=== PATIENT | male | born 1965 ===

== ENCOUNTER 2019-06-20 16:09 | Observation (INO) | payer OTHER ==
--- NOTE | 2019-06-20 16:57 | RAD ---
Chest AP view INDICATION: History of confusion COMPARISON: None FINDINGS: Lungs: The lungs are clear Cardiac silhouette: The cardiomediastinal silhouette appears within normal limits. Pulmonary vasculature: Normal Pleural spaces: No pleural effusion or pneumothorax is demonstrated. Upper abdomen: No abnormality seen. Osseous structures: No acute osseous abnormality. There is an ACDF of the lower cervical spine. Additional findings: None. IMPRESSION: No acute cardiopulmonary abnormality.
[2019-06-20 17:13] LABS: #Basophils 0.1 thou/uL (0.0-0.2); #Lymphocytes 0.7 thou/uL (1.20-3.40); #Monocytes 0.7 thou/uL (0.11-0.59); #Neutrophils 7.1 thou/uL (1.40-6.50); %Basophils 0.6 % (0.0-1.0); %Eosinophils 0.2 % (0.0-10.0); %Lymphocytes 7.8 % (21.0-51.0); %Monocytes 7.7 % (0.0-10.0); %Neutrophils 83.6 % (42.0-75.0); Hemoglobin 16.3 g/dL (14.0-18.0); Mean Corpuscular HGB CONC 34.4 g/dL (32.0-36.0); Mean Corpuscular Hemoglobin 33.5 pg (27.0-31.0); Mean Corpuscular Volume 97.4 fL (78.0-98.0); Mean Platelet Volume 7.6 fL (7.4-10.4); Platelet Count 135 thou/uL (130-400); RBC Distribution Width 12.5 % (11.5-14.5); Red Blood Cell (RBC) Count 4.88 mill/uL (4.70-6.10); White Blood Cell (WBC) Count 8.5 thou/uL (4.8-10.8)
--- NOTE | 2019-06-20 17:14 | CT ---
CT ABODMEN AND PELVIS PERFORMED WITHOUT CONTRAST ENHANCEMENT: 06/20/19 HISTORY: Altered mental status. The ventricular and cisternal system is within normal limits. There is no signs of intracerebral hemo rrhage or extra-axial fluid collections. Mastoid air cells and visualized sinuses are clear. IMPRESSION: No acute intracranial abnormalities. POS: JEAN CLAUDE
[2019-06-20] MEDS ORDERED: Ondansetron PF 4 MG/2 ML Vial ONE (17:15)
[2019-06-20] MEDS ORDERED: Lorazepam 2 MG/ML VIAL ONE (17:15)
[2019-06-20] MEDS ORDERED: Multivitamins, Adult 10 ML, Thiamine HCl 100 MG, Folic Acid 1 MG in Dextrose 5 %-0.45 %... IV SCH (17:30)
[2019-06-20 17:35] LABS: ALT (SGPT) 122 U/L (8-55); AST (SGOT) 113 U/L (5-34); Alkaline Phosphatase 68 U/L (40-110); Anion Gap 19 mmol/L (10-20); BUN (Urea Nitrogen) 12 mg/dL (8.4-25.7); Bilirubin, Total 2.4 mg/dL (0.2-1.2); Calc. Creatinine Clearance 0 mL/min (70-130); Calcium 10.1 mg/dL (7.8-10.44); Carbon Dioxide 22 mmol/L (22-29); Chloride 99 mmol/L (98-107); Estimated GFR-MDRD 79; Globulin 3.2 g/dL (2.4-3.5); Glucose 190 mg/dL (70-105); Protein, Total 8.2 g/dL (6.0-8.3); Sodium 136 mmol/L (136-145)
[2019-06-20 18:05] LABS: Acetaminophen Less than 6.0 mcg/mL (10.0-30.0); Alcohol Less than 10 mg/dL (Less than 10); Salicylate Less than 8.0 mg/dL (15.0-30.0)
[2019-06-20 18:17] LABS: PTT 24.2 SEC (22.9-36.1); Prothrombin Time 13.6 SEC (12.0-14.7)
[2019-06-20] MEDS ORDERED: Aspirin Chewable 81 MG TAB ONE (18:49)
[2019-06-20 18:57] LABS: Bacteria/HPF None Seen HPF (None Seen); Bilirubin Negative (Negative); Blood, Urine Trace (Negative); Clarity Clear (Clear); Glucose, Urine (Dipstick) 50 mg/dL (Negative); Leukocyte Negative Leu/uL (Negative); Mucous/LPF Rare LPF (<2+); Nitrite Negative (Negative); Protein, Urine (Dipstick) 300 mg/dL (Neg-Trace); RBC/HPF None Seen HPF (0-3); Squamous Epithelial None Seen HPF (0-3); Urobilinogen Normal mg/dL (Less than 2); WBC/HPF 0-3 HPF (0-3)
[2019-06-20 19:06] LABS: Amphetamine Not Detected (NotDetected); Barbiturates Screen Not Detected (NotDetected); Benzodiazepine Screen Not Detected (NotDetected); Cocaine Metabolite Screen Not Detected (NotDetected); Medtox Control Line Valid? VALID (VALID); Medtox Reader # READER 1; Methadone Not Detected (NotDetected); Methamphetamine Not Detected (NotDetected); Opiate Screen Not Detected (NotDetected); Oxycodone Screen Not Detected (NotDetected); Phencyclidine (PCP) Not Detected (NotDetected); THC/Cannabinoid Screen Not Detected (NotDetected); Tricyclic Screen Not Detected (NotDetected)
[2019-06-20] MEDS ORDERED: Lorazepam 2 MG/ML VIAL SLOW IVP PRN ×2 (19:28→20:07)
[2019-06-20] MEDS ORDERED: Ondansetron ODT 4 MG TAB SL PRN (20:26)
[2019-06-20] MEDS ORDERED: Acetaminophen 325 MG TAB PO PRN (20:26)
[2019-06-20] MEDS ORDERED: Ondansetron PF 4 MG/2 ML Vial IVP PRN (20:26)
[2019-06-20] MEDS ORDERED: cloNIDine 0.1 MG TAB PO PRN (20:41)
[2019-06-20] MEDS: chlordiazePOXIDE HCl 5 MG CAP PO SCH (21:03)
[2019-06-20] MEDS: Sodium Chloride 0.9% 1,000 ML IV SCH (21:04)
--- NOTE | 2019-06-20 21:38 | HP ---
CHIEF COMPLAINT: Confusion and possible seizures. HISTORY OF PRESENT ILLNESS: Mr. Ramirez is a 53-year-old male with past medical history of alcohol abuse, presented to the emergency room for confusion and possible seizures. As per history from his brother, the patient was visiting his mother who has dementia and they were going to [place], and he became altered and began having possible seizure. The patient further stated that he was awake during the ? seizure, but he was tremulous. The patient is having to repeat questions multiple times and does not know what he was doing in [place]. He had no focal neurological deficit. The patient does drink alcohol daily. He stated that the last drink was yesterday. He denies any pain or headache at this time. Initial workup in the emergency room including CT of the brain, no acute finding. Chest x-ray was negative. There is slight elevation of liver function tests and bilirubin. The patient had an NIH score of 1 due to confusion. There were no focal neurological deficits. The patient is being admitted to the hospital for close observation and further management. Banana bag was given. Also, the patient was given Ativan. PAST MEDICAL HISTORY: Alcohol abuse. PAST SURGICAL HISTORY: Neck surgery. SOCIAL HISTORY: The patient drinks alcohol daily, more than 5 drinks daily. Lives at home with family. FAMILY HISTORY: Reviewed and noncontributory. ALLERGIES: NO KNOWN ALLERGIES. CURRENT MEDICATIONS: None. REVIEW OF SYSTEMS: Review of 14 systems negative except what is mentioned in History of Present Illness. PHYSICAL EXAMINATION: GENERAL: The patient is awake, alert, and oriented x3. A little bit tremulous. VITAL SIGNS: Blood pressure 143/91, pulse is 85, respiratory rate is 14, temperature 98.6, and O2 saturation 95% on room air. HEAD AND NECK: Normocephalic, atraumatic. NECK: Supple. No JVD. CHEST: Fair bilateral air entry. HEART: S1, S2. Regular. ABDOMEN: Soft, nontender. Bowel sounds present. NEUROLOGIC: Awake, alert, oriented x4. No focal neurological deficit. PSYCHIATRIC: Unable to assess. EXTREMITIES: No clubbing or cyanosis. GENITOURINARY: No suprapubic tenderness. No flank tenderness. LABORATORY DATA: Labs unremarkable except for elevated AST 113, ALT 122, bilirubin 2.4, glucose 190. IMAGING STUDIES: As mentioned above in History of Present Illness. ASSESSMENT: 1. Acute encephalopathy, metabolic ? 2. Alcohol withdrawal, possibility. 3. Seizures, less likely ? 4. Cerebrovascular accident ? unlikely. PLAN: 1. Admit. 2. Frequent neuro checks. 3. Seizure precautions. 4. IV fluids. 5. Benzodiazepine as needed for seizures/alcohol withdrawal. 6. Thiamine, multivitamin, and folic acid. 7. Consult Neurology for evaluation and further recommendations. 8. MRI in the a.m. ? 9. DVT prophylaxis as appropriate. 10. Expected length of stay at least 1 midnight if patient is stable and further workup negative. Job ID: [id number]
[2019-06-21 00:39] VITALS: BMI 25.9
[2019-06-21 05:20] LABS: Cardiac Risk 1.6 (Less than 4.5)
[2019-06-21] MEDS: Sodium Chloride 0.9% 1,000 ML IV SCH ×2 (07:50→18:30)
[2019-06-21] MEDS ORDERED: Aspirin 325 mg Enteric Coated Tablet PO SCH (09:00)
[2019-06-21] MEDS ORDERED: Enoxaparin Sodium 40 MG/0.4 ML SYRINGE SC SCH (09:00)
--- NOTE | 2019-06-21 10:51 | MRI ---
MRI brain noncontrast HISTORY: Seizure. FINDINGS: There is no evidence of acute intracranial hemorrhage or infarct. The ventricles appear nor mal in size, shape and position. There is no mass effect or shift of midline structures. Hippocampal formations are within normal limits. Involving the posterolateral wall of the left sphenoid sinus and the medial aspect of the left mastoi d air cells are small oval well-circumscribed and peripherally ossified complex cystic lesions that may represent mucous retention cysts or mucous filled para-sinus cavities. IMPRESSION : No acute intracranial abnormalities are demonstrated.
[2019-06-21] MEDS: chlordiazePOXIDE HCl 5 MG CAP PO SCH ×2 (10:57→15:15)
[2019-06-21 11:42] VITALS: TEMP 98.7
[2019-06-21 17:36] VITALS: BP 160/81
[2019-06-21] MEDS ORDERED: Multivitamins, Adult 10 ML, Folic Acid 1 MG, Thiamine HCl 100 MG in Dextrose 5 %-0.45 %... IV SCH (18:00)
--- NOTE | 2019-06-22 07:14 | CON ---
DATE OF TELENEUROLOGY CONSULTATION: 06/21/2019 CHIEF COMPLAINT: Confusion. HISTORY OF PRESENT ILLNESS: The patient reports he was a bit confused and it is now resolved. He woke up yesterday. He could not drink or eat much. He was visiting his mom, who lives on her own, and the patient also stated his brother thought he might have been under stress. The patient has been drinking alcohol on a daily basis, but he never had any issues when he stopped last January. He had diverticulitis, which was a serious episode and he did not drink while he was hospitalized and he had no symptoms or problems after that. He does not have any history of numbness, weakness, dizziness, or any visual disturbances. He feels like he is back to baseline at this time. PAST MEDICAL HISTORY: Diverticulitis, occasional hypertension. No diabetes or hypercholesterolemia. PAST SURGICAL HISTORY: Disk removal from his neck with a neck surgery. 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 He lives with his in [place] and works at the [employer]. FAMILY HISTORY: His mother is 85, she has Alzheimer's. He has maternal aunt, who had dementia. His father at 71 from coronary artery disease. He had a coronary artery bypass graft. His brother has coronary artery disease, and his other brothers and sister are healthy. He has 4 siblings total. He has 3 sons and a daughter. All his children are healthy. REVIEW OF SYSTEMS: PULMONARY: Negative for cough or shortness of breath. GI: Negative for nausea, vomiting, or diarrhea. NEUROLOGICAL: Positive for confusion, which has resolved. GENERAL: Negative for any fever. ENT: Negative for any hearing loss or throat problem or swallowing difficulty. GENITOURINARY: Negative for any bladder symptoms. DERMATOLOGIC: Negative for rash. LABORATORY DATA: White count 8.5, hemoglobin 16.3, hematocrit 47.5, platelet count 135. Sodium 136, potassium 4, chloride 99, bicarb 22, BUN 12, creatinine 0.98, glucose 190, bilirubin 2.4, AST 113, ALT 122, alkaline phosphatase 68, and lipid profile is within normal limits. Urinalysis is negative, and urine tox screen is also negative for any drugs. Plasma alcohol was less than 10. IMAGING STUDIES: His CT of the head was negative for any acute infarct. His brain MRI was also completed and it was negative for any acute intracranial abnormality. PHYSICAL EXAMINATION: VITAL SIGNS: Temperature 98.7, pulse 84, blood pressure 170/91, respiratory rate 16, O2 saturations 99. GENERAL APPEARANCE: Well-built, well-nourished man, who is comfortable in bed. CHEST: Clear vesicular breathing. CARDIOVASCULAR: S1 and S2 heard. No murmurs. ABDOMEN: Soft and nontender. No organomegaly noted. NEUROLOGICAL: Higher intellectual functions, normal orientation to time, place , and person. Appropriate conversation. Cranial nerves 2 through 12, normal extraocular movements. Pupils 2 mm, reactive to light and normal sensation of face bilaterally. Normal elevation of palate and no facial asymmetry noted. Normal hearing bilaterally. Motor examination, bulk normal, tone normal. Strength 5/5 in both upper and lower extremities, except left lower extremity, 5-/5. Muscle groups tested, deltoid, biceps, triceps, wrist extension and flexion, finger extension and flexion bilaterally. Deep tendon reflexes 2+ throughout. Sensory normal to touch bilaterally in upper and lower extremities. Cerebellar, normal [id number] and [id number]-[id number] and gait not tested. IMPRESSION AND PLAN: The patient is a 53-year-old man with longstanding history of daily alcohol intake. He has been found to have some confusional state and he has not eaten much. He was not able to eat or drink in the last couple of days. This could be a reflection of possible dehydration. His examination is positive for mild tremor in the upper extremities bilaterally. Otherwise, rest of neurological exam is normal. His lower extremity weakness on the left could be chronic due to his prior neck surgery. At this time, I do not think this is a vascular event and this could be a transient confusion, which is resolved at this time. Please call if you have any further questions. Job ID: [id number] [facility]
--- NOTE | 2019-06-23 12:52 | DIS ---
DATE OF ADMISSION: 06/20/2019 DATE OF DISCHARGE: 06/21/2019 PRIMARY CARE PROVIDER: Unknown. DISCHARGE DIAGNOSES: 1. Acute metabolic encephalopathy. 2. Possible alcohol withdrawal. 3. Abnormal liver function tests. CONDITION OF PATIENT ON THE DAY OF DISCHARGE: Stable. I assessed Mr. Ramirez on the day of discharge. He denies any chest pain or shortness of breath. Vital signs are stable. S1 and S2 are heard, regular. Lungs are clear to auscultation bilaterally. DISCHARGE MEDICATIONS: Thiamine 100 mg daily and the patient is advised to resume Viagra. HOSPITAL COURSE: Mr. Ramirez is a pleasant 53-year-old gentleman, who was admitted to [facility] for an episode of altered mental status on June 20, 2019. He improved with intravenous fluids and banana bag. He was seen by Neurology Service. He has been cleared for discharge by Neurology Service. MRI of the brain did not show any acute intracranial abnormality. Involving the posterior lateral wall of the left sphenoid sinus and the medial aspect of the left mastoid air cells are small, oval, well-circumscribed and peripherally ossified complex cystic lesions that may represent mucous retention cysts or mucus filled parasinus cavities. The patient is being discharged home in a stable condition. He has been advised to stop alcohol abuse and to follow up with primary care provider in 3 days' time for management of abnormal liver function tests. DISCHARGE DESTINATION: Home. POST-ACUTE CARE FOLLOWUP: With primary care provider in 3 days. DIET: Regular. CONSULTATIONS DURING THIS HOSPITALIZATION: Teleneurology with Dr. Pisano. Many thanks for allowing me to participate in your patient's care. Please feel free to contact me with any questions or concerns. Fasting lipid profile showed triglycerides 42, cholesterol 175, LDL cholesterol 56, and HDL cholesterol 111. Job ID: [id number]
--- NOTE | 2019-06-25 13:56 | EKG ---
Test Reason : Blood Pressure : / mmHG Vent. Rate : 107 BPM Atrial Rate : 107 BPM P-R Int : 156 ms QRS Dur : 086 ms QT Int : 326 ms P-R-T Axes : 022 018 036 degrees QTc Int : 435 ms Sinus tachycardia Anterior infarct , age undetermined Abnormal ECG Confirmed by MAYA BHAKTA DO ([id number]), make up editor SYDNIE SHAHID ([id number]) on 06/25/2019 1:55:36 PM Referred By: Confirmed By:MAYA BHAKTA DO
== END 2019-06-21 18:52 | disposition home or self-care (01) ==
LOC: ERS 16:09 → 2SE 19:14
PROVIDERS: ADMIT Internal Medicine; ATTEND Internal Medicine
DX: G93.41 Metabolic encephalopathy (principal); I10 Essential (primary) hypertension
CPT/HCPCS: 36415; 70450; 70551; 71045; 80053; 80061; 80306; 80307; 81003; 81015; 82140; 85025; 85610; 85730; 93005; 96361; 96365; 96366; 96372; 96375; G0378; J1650; J2060; J2405; J3411; J7042